=== PATIENT | male | born 1985 | race Two or more races ===

== ENCOUNTER 2018-01-30 10:06 | Emergency (ER) | payer SELFPAY ==
[2018-01-30 10:16] VITALS: TEMP 98.6; BMI 29.2
--- NOTE | 2018-01-30 11:06 | PDOC ---
History of Present Illness - General Chief Complaint: Chest Pain Stated Complaint: CHEST PAIN Time Seen by Provider: 01/30/18 11:00 - History of Present Illness Initial Comments: 01/30/18 11:11 The patient is a 32 year old male, with no significant PMH who presents to the emergency department with chest pain for the past two weeks. Patient states the chest pain is constant, worse with deep breathing, nonexertional and radiates at times to the L arm. 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 The patient notes the chest pain has been persistent over the past two weeks and is triggered only by carrying heavy tools at work. He denies taking any meds for his chest pain. Patient was seen by his PCP at [address] [place] [address] 3 days ago, for this chest pain and was referred to abstract searcher but did not make an appoitnment secondary to health insurance issues. Patient is not on any daily meds. Patient denies any family history of cardiac illnesses. Patient denies any recent travel. He smokes 1 PPD. The patient denies lower extremity pain or calf pain, shortness of breath, headache and dizziness. Denies fever, chills, nausea, vomit, diarrhea and constipation. Denies dysuria, frequency, urgency and hematuria. Allergies: NKA Past surgical history: None reported. Social history: No reported alcohol or drug use. Smokes 1 PPD. Past History - Past Medical History Allergies/Adverse Reactions: Allergies Allergy/AdvReac Type Severity Reaction Status Date / Time No Known Allergies Allergy Verified 01/30/18 10:13 Home Medications: Ambulatory Orders NK [No Known Home Medication] 01/30/18 COPD: No Diabetes: No Kidney Stones: No - Surgical History Cholecystectomy: No GI Surgery: No Neurologic Surgery: No - Immunization History Immunization Up to Date: No - Suicide/Smoking/Psychosocial Hx Smoking History: Never smoked Have you smoked in the past 12 months: No Information on smoking cessation initiated: No Hx Alcohol Use: No Drug/Substance Use Hx: No Review of Systems - Review of Systems Comments:: 01/30/18 11:14 GENERAL/CONSTITUTIONAL: No fever or chills. No weakness. HEAD, EYES, EARS, NOSE AND THROAT: No change in vision. No ear pain or discharge. No sore throat. GASTROINTESTINAL: No nausea, vomiting, diarrhea or constipation. GENITOURINARY: No dysuria, frequency, or change in urination. CARDIOVASCULAR: +chest pain, no shortness of breath. RESPIRATORY: No cough, wheezing, or hemoptysis. MUSCULOSKELETAL: No joint or muscle swelling or pain. No neck or back pain. SKIN: No rash NEUROLOGIC: No headache, vertigo, loss of consciousness, or change in strength/ sensation. ENDOCRINE: No increased thirst. No abnormal weight change. HEMATOLOGIC/LYMPHATIC: No anemia, easy bleeding, or history of blood clots. ALLERGIC/IMMUNOLOGIC: No hives or skin allergy. *Physical Exam - Vital Signs Last Vital Signs Temp Pulse Resp BP Pulse Ox 98.6 F 75 18 137/88 99 01/30/18 10:13 01/30/18 10:13 01/30/18 10:13 01/30/18 10:13 01/30/18 10:13 - Physical Exam Comments: 01/30/18 14:06 GENERAL: Awake, alert, and fully oriented, in no acute distress EYES: PERRLA, EOMI, sclera anicteric, conjunctiva clear ENT: Auricles normal inspection, hearing grossly normal, nares patent, oropharynx clear without exudates. Moist mucosa NECK: Normal ROM, supple, no lymphadenopathy, JVD, or masses LUNGS: Breath sounds equal, clear to auscultation bilaterally. No wheezes, and no crackles HEART: Regular rate and rhythm, normal S1 and S2, no murmurs, rubs or gallops. + reproducible L chest ttp ABDOMEN: Soft, nontender, normoactive bowel sounds. No guarding, no rebound. No masses EXTREMITIES: Normal range of motion, no edema. No clubbing or cyanosis. No cords, erythema, or tenderness NEUROLOGICAL: Normal speech, cranial nerves intact,5/5 strength in all 4 extremities, normal sensation to light touch in all 4 extremities, normal cerebellar exam, normal gait, normal tone SKIN: Warm, Dry, normal turgor, no rashes or lesions noted. Moderate Sedation - Procedure Monitoring Vital Signs: Procedure Monitoring Vital Signs Temperature 98.6 F 01/30/18 10:13 Pulse Rate 75 01/30/18 10:13 Respiratory Rate 18 01/30/18 10:13 Blood Pressure 137/88 01/30/18 10:13 O2 Sat by Pulse Oximetry (%) 99 01/30/18 10:13 Heart Score/ECG Review - History History: Slightly suspicious - Electrocardiogram EKG: Normal - Age Age: </= 45 - Risk Factors Based on the list above the patient has:: 1-2 risk factors - Troponin Troponin: </= normal limit - Score Heart Score - Total: 1 #1 01/30/18 11:14 Twelve-lead EKG was performed and reviewed by me. Normal sinus rhythm, rate 77. Normal axis and intervals. No ST elevations or T-wave inversions. ED Treatment Course - LABORATORY CBC & Chemistry Diagram: 01/30/18 11:36 01/30/18 11:36 Medical Decision Making - Medical Decision Making 01/30/18 13:25 32yo M with no significant PMH presents to the ED with LSCP radiating to the L arm for 2 weeks. Vitals wnl. Exam with reproducible CP. EKG is non ischemic. 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 HS is 1. 01/30/18 16:48 trop 2 negative CXR clear Pt feels well, requests DC home Pt to f/u with abstract searcher I discussed the physical exam findings, ancillary test results and final diagnoses with the patient. I answered all of the patient's questions. The patient was satisfied with the care received and felt comfortable with the discharge plan and treatment plan. The patient will call their primary care physician within 24 hours to arrange follow-up and will return to the Emergency Department with any new, persistent or worsening symptoms. *DC/Admit/Observation/Transfer Diagnosis at time of Disposition: Chest pain, Chest wall tenderness - Discharge Dispostion Disposition: HOME Condition at time of disposition: Stable Decision to Admit order: No - Referrals - Patient Instructions Printed Discharge Instructions: DI for Chest Pain Additional Instructions: Follow up with your abstract searcher as discussed within 1-2 days Return to the emergency department if you have any new, worsening, or concerning symptoms - Post Discharge Activity - Attestations Physician Attestion: 01/30/18 16:49 I, Dr. Luis M Mccann MD, attest that this document has been prepared under my direction and personally reviewed by me in its entirety. I further attest, that it accurately reflects all work, treatment, procedures and medical decision -making performed by me.
[2018-01-30] MEDS ORDERED: ACETAMINOPHEN 1000 MG/100 ML VIAL (NON FORMULARY) IVPB ONE (11:16)
[2018-01-30] MEDS ORDERED: ACETAMINOPHEN INJECTION 100 ML IVPB ONE (11:45)
[2018-01-30 11:59] LABS: BASO % 0.8 % (0-2.0); EOS % 2.1 % (0-4.5); HEMATOCRIT 41.6 % (35.4-49); LYMPH % 38.9 % (8-40); MCH 30.7 pg (25.7-33.7); MEAN CELL VOLUME 85.4 fl (80-96); MEAN PLT VOLUME 8.1 fl (7.5-11.1); MONO % 7.4 % (3.8-10.2); NEUT % 50.8 % (42.8-82.8); PLATELET COUNT 296 K/MM3 (134-434); RBC 4.87 M/mm3 (4.00-5.60); RDW 12.8 % (11.9-15.9); WHITE BLOOD COUNT 7.7 K/mm3 (4.0-10.0)
--- NOTE | 2018-01-30 12:55 | EKG ---
Test Reason : Blood Pressure : / mmHG Vent. Rate : 077 BPM Atrial Rate : 077 BPM P-R Int : 170 ms QRS Dur : 086 ms QT Int : 362 ms P-R-T Axes : 045 063 037 degrees QTc Int : 409 ms NORMAL SINUS RHYTHM NORMAL ECG NO PREVIOUS ECGS AVAILABLE Confirmed by Chino Bergman ([id number]) on 01/30/2018 12:55:16 PM Referred By: Confirmed By:Chino Bergman
[2018-01-30 13:27] LABS: ALBUMIN 3.8 g/dl (3.4-5.0); ALK PHOS 109 U/L (45-117); ANION GAP 9 MMOL/L (8-16); BILIRUBIN,TOTAL 0.3 mg/dL (0.2-1); BLOOD UREA NITROGEN 16 mg/dL (7-18); CALCIUM 8.7 mg/dL (8.5-10.1); CHLORIDE 106 mmol/L (98-107); CO2 25 mmol/L (21-32); CREATININE 0.6 mg/dL (0.55-1.3); GLUCOSE,RANDOM 95 mg/dL (74-106); POTASSIUM 4.2 mmol/L (3.5-5.1); SGOT/AST 50 U/L (15-37); SGPT/ALT 114 U/L (13-61); SODIUM 139 mmol/L (136-145); TOT PROT 7.8 g/dl (6.4-8.2)
[2018-01-30 17:13] VITALS: BP 139/82; PULSE 82
== END 2018-01-30 17:15 | disposition home or self-care (01) ==
LOC: JER 10:06
PROC: 3E033NZ Introduction of Analgesics, Hypnotics, Sedatives into Peripheral Vein, Percutaneous Approach (ICD-10-PCS; principal; 2018-01-30)
DX: R07.9 Chest pain, unspecified (principal); R07.89 Other chest pain
CPT/HCPCS: 36415; 71046-TC-FY; 80053; 84484; 85025; 93005; 93010; 99283-25; J0131